=== PATIENT | female | born 1975 | race African-American/Black ===

== ENCOUNTER 2019-10-01 09:06 | Emergency (ER) | payer MEDICAID ==
[~2019-10-01] VITALS: Ht 160 cm; Wt 79.4 kg
[~2019-10-01 09:06] MED LIST: ABILIFY10 MG ORAL; ADVAIR 250-501 EACH INH; ALBUTEROL SULF8.5 GM INH; ALBUTEROL2.5 MG/3 M HHN; CIPRO500 MG PO; COMBIVENT2 PUFFS INH; DILANTIN100 MG ORAL; IBUPROFEN600 MG ORAL; MACROBID100 MG ORAL; NAPROXEN500 M1 ORAL; PREDNISONE20 MG ORAL; ZOFRAN ODT4 MG ORAL; ZOLOFT100 MG ORAL
--- NOTE | 2019-10-01 09:20 | NUR ---
ED Nurse Note: Patient presented to ED via ambulance. Patient is homeless. Patient c/o flu-like symptoms such as dry throat, overall fatigue, feeling feverish. Patient is aao x 4. Patient ambulatory. No acute distress noted.
--- NOTE | 2019-10-01 09:22 | NUR ---
ED Nurse Note: Per Dr. Basurto, patient is okay to stay in fast track without hall monitor.
[2019-10-01 09:25] VITALS: BP 149/98
--- NOTE | 2019-10-01 09:45 | NUR ---
ED Nurse Note: Patient stated she was just at [facility] for the same symptoms yesterday.
--- NOTE | 2019-10-01 09:45 | NUR ---
ED Nurse Note: 2 RNs attempted to get IV line inserted with no success. Lab contacted to draw bloodwork. notified.
[2019-10-01 09:59] LABS: APPEARANCE,URINE CLOUDY; BILIRUBIN, URINE NEGATIVE (NEGATIVE); COLOR,URINE BROWN; GLUCOSE, URINE (UA) NEGATIVE (NEGATIVE); KETONES,URINE NEGATIVE (NEGATIVE); LEUKOCYTE ESTERASE ,URINE NEGATIVE (NEGATIVE); NITRITE,URINE NEGATIVE (NEGATIVE); PH,URINE 6 (4.5-8.0); PROTEIN,URINE 2+ (NEGATIVE); UROBILINOGEN,URINE 1 MG/DL (0.0-1.0)
--- NOTE | 2019-10-01 10:19 | NUR ---
ED Nurse Note: Patient requested for cold pack for toothache. Cold pack provided and patient instructed not to put cold pack directly on bare skin, verbalized understanding.
--- NOTE | 2019-10-01 10:31 | NUR ---
ED Nurse Note: Patient refused any IV attempt on arms, per patient only neck. Dr. Basurto notified.
[2019-10-01 10:34] LABS: BASOPHILS % (AUTO) 1.5 % (0.0-2.0); EOSINOPHILS % (AUTO) 0.5 % (0.0-3.0); HEMATOCRIT 37.3 % (37.0-47.0); HEMOGLOBIN 12.1 G/DL (12.0-16.0); LYMPHOCYTES % (AUTO) 28.8 % (20.0-45.0); MEAN CORPUSCULAR VOLUME 83 FL (80-99); MONOCYTES % (AUTO) 11.5 % (1.0-10.0); NEUTROPHILS % (AUTO) 57.7 % (45.0-75.0); PLATELET COUNT 178 K/UL (150-450); RED CELL DISTRIBUTION WIDTH 16.3 % (11.6-14.8)
[2019-10-01 10:43] LABS: ANION GAP 8 mmol/L (5-15); BLOOD UREA NITROGEN 15 mg/dL (7-18); CALCIUM 8.2 MG/DL (8.5-10.1); CARBON DIOXIDE 28 MMOL/L (21-32); CHLORIDE 104 MMOL/L (98-107); CREATININE 0.6 MG/DL (0.55-1.30); POTASSIUM 3.8 MMOL/L (3.5-5.1); SODIUM 140 MMOL/L (136-145)
[2019-10-01 11:18] LABS: ALANINE AMINOTRANSFERASE 62 U/L (12-78); ALBUMIN 3.5 G/DL (3.4-5.0); ALBUMIN/GLOBULIN RATIO 0.8 (1.0-2.7); ALKALINE PHOSPHATASE 60 U/L (46-116); ASPARTATE AMINO TRANSFERASE 43 U/L (15-37); BILIRUBIN,TOTAL 0.5 MG/DL (0.2-1.0); CKMB 3.4 NG/ML (0.0-3.6); CREATINE KINASE 305 U/L (26-308)
--- NOTE | 2019-10-01 11:55 | NUR ---
ED Nurse Note: lunch tray provide.
--- NOTE | 2019-10-01 12:08 | NUR ---
ED Nurse Note: pt finished 100% of lunch tray.
--- NOTE | 2019-10-01 12:15 | Diagnostic Imaging Report ---
Indication: Dyspnea Comparison: 12/20/2013 A single view chest radiograph was obtained. Findings: Cardiomediastinal appearance is within normal limits for age. The lungs are clear. Pulmonary vascularity is appropriate. The diaphragmatic contour is smooth and costophrenic angles are sharp. No pleural effusions are identified. The bones are unremarkable. Impression: No acute findings
--- NOTE | 2019-10-01 13:04 | Emergency Room Report ---
History of Present Illness General Chief Complaint: Flu Like Symptoms Source: Patient Present Illness HPI This patient is brought in by EMS from the streets. She is homeless. She states she has had ongoing social stressors in life stressors that has caused her to be suicidal. She states she has been going from hospital to hospital because she feels "terrible." She does not feel safe and is requesting evaluation and placement in a psychiatric facility. She also states she has all over body aches and overall just feels terrible. She denies any specific symptoms. She denies fever or chills. She denies nausea or vomiting. She denies chest pain or shortness of breath. Allergies: Coded Allergies: ACETAMINOPHEN (Verified Allergy, Unknown, 09/10/14) HYDROCODONE (Unverified Allergy, Unknown, 01/02/15) HYDROCODONE BIT (Verified Allergy, Unknown, 09/10/14) IBUPROFEN (Unverified Allergy, Unknown, 10/01/19) Patient History Past Medical History: see triage record, asthma, seizures Social History: Reports: smoking, alcohol use, drug use Reviewed Nursing Documentation: PMH: Agreed; PSxH: Agreed Nursing Documentation-PMH Past Medical History: No History, Except For Hx Asthma: Yes Hx Seizures: Yes Review of Systems All Other Systems: negative except mentioned in HPI Physical Exam Vital Signs Date Time Temp Pulse Resp B/P (MAP) Pulse Ox O2 Delivery O2 Flow Rate FiO2 10/01/19 09:06 98.2 100 18 151/96 (114) 99 Room Air Sp02 EP Interpretation: reviewed, normal General Appearance: no apparent distress, alert, GCS 15, non-toxic Head: normocephalic, atraumatic Eyes: bilateral eye normal inspection, bilateral eye PERRL ENT: hearing grossly normal, normal pharynx, no angioedema, normal voice Neck: full range of motion, supple/symm/no masses Respiratory: chest non-tender, lungs clear, normal breath sounds, no respiratory distress, no retraction, no accessory muscle use, speaking full sentences Cardiovascular #1: regular rate, rhythm, no edema Gastrointestinal: normal bowel sounds, non tender, soft, non-distended, no guarding, no rebound Rectal: deferred Musculoskeletal: back normal, gait/station normal, normal range of motion, non- tender Neurologic: alert, oriented x3, responsive, motor strength/tone normal, sensory intact, speech normal Psychiatric: judgement/insight normal, memory normal, depressed affect Skin: no rash, rash Medical Decision Making Diagnostic Impression: Primary Impression: Suicidal ideation Additional Impression: Drug abuse ER Course This patient presents with suicidal ideation. She is also homeless and has polysubstance drug abuse. She is awaiting transfer as a voluntary admit to a psychiatric facility. She is medically cleared for treatment in a psychiatric facility. Laboratory Tests Test 10/01/19 09:18 10/01/19 10:20 Urine Color Brown Urine Appearance Cloudy Urine pH 6 (4.5-8.0) Urine Specific [place] 1.020 (1.005-1.035) Urine Protein 2+ (NEGATIVE) H Urine Glucose (UA) Negative (NEGATIVE) Urine Ketones Negative (NEGATIVE) Urine Blood Negative (NEGATIVE) Urine Nitrite Negative (NEGATIVE) Urine Bilirubin Negative (NEGATIVE) Urine Urobilinogen 1 MG/DL (0.0-1.0) H Urine Leukocyte Esterase Negative (NEGATIVE) Urine RBC 0 /HPF (0 - 2) Urine WBC 0 /HPF (0 - 2) Urine Squamous Epithelial Cells Moderate /LPF (NONE/OCC) H Urine Bacteria Few /HPF (NONE) Urine Mucus Few /LPF (NONE/OCC) H Urine Opiates Screen Negative (NEGATIVE) Urine Barbiturates Screen Negative (NEGATIVE) Phencyclidine (PCP) Screen Negative (NEGATIVE) Urine Amphetamines Screen Positive (NEGATIVE) H Urine Benzodiazepines Screen Negative (NEGATIVE) Urine Cocaine Screen Positive (NEGATIVE) H Urine Marijuana (THC) Screen Negative (NEGATIVE) White Blood Count 7.0 K/UL (4.8-10.8) Red Blood Count 4.50 M/UL (4.20-5.40) Hemoglobin 12.1 G/DL (12.0-16.0) Hematocrit 37.3 % (37.0-47.0) Mean Corpuscular Volume 83 FL (80-99) Mean Corpuscular Hemoglobin 26.9 PG (27.0-31.0) L Mean Corpuscular Hemoglobin Concent 32.5 G/DL (32.0-36.0) Red Cell Distribution Width 16.3 % (11.6-14.8) H Platelet Count 178 K/UL (150-450) Mean Platelet Volume 7.1 FL (6.5-10.1) Neutrophils (%) (Auto) 57.7 % (45.0-75.0) Lymphocytes (%) (Auto) 28.8 % (20.0-45.0) Monocytes (%) (Auto) 11.5 % (1.0-10.0) H Eosinophils (%) (Auto) 0.5 % (0.0-3.0) Basophils (%) (Auto) 1.5 % (0.0-2.0) Sodium Level 140 MMOL/L (136-145) Potassium Level 3.8 MMOL/L (3.5-5.1) Chloride Level 104 MMOL/L (98-107) Carbon Dioxide Level 28 MMOL/L (21-32) Anion Gap 8 mmol/L (5-15) Blood Urea Nitrogen 15 mg/dL (7-18) Creatinine 0.6 MG/DL (0.55-1.30) Estimate Glomerular Filtration Rate > 60 mL/min (>60) Glucose Level 86 MG/DL (74-106) Lactic Acid Level 0.80 mmol/L (0.4-2.0) Calcium Level 8.2 MG/DL (8.5-10.1) L Total Bilirubin 0.5 MG/DL (0.2-1.0) Aspartate Amino Transferase (AST) 43 U/L (15-37) H Alanine Aminotransferase (ALT) 62 U/L (12-78) Alkaline Phosphatase 60 U/L (46-116) Total Creatine Kinase 305 U/L (26-308) Creatine Kinase MB 3.4 NG/ML (0.0-3.6) Creatine Kinase MB Relative Index 1.1 Troponin I 0.002 ng/mL (0.000-0.056) Total Protein 7.9 G/DL (6.4-8.2) Albumin 3.5 G/DL (3.4-5.0) Globulin 4.4 g/dL Albumin/Globulin Ratio 0.8 (1.0-2.7) L EKG Diagnostic Results Rate: normal Rhythm: NSR ST Segments: no acute changes Rhythm Strip Diag. Results EP Interpretation: yes Rate: 70's Rhythm: NSR, no PVC's, no ectopy Chest X-Ray Diagnostic Results Chest X-Ray Diagnostic Results : Chest X-Ray Ordered: Yes # of Views/Limited/Complete: 1 View Indication: Other EP Interpretation: Yes Interpretation: no consolidation, no effusion, no pneumothorax, no acute cardiopulmonary disease Impression: No acute disease Electronically Signed by: Misty Basurto DO Last Vital Signs Date Time Temp Pulse Resp B/P (MAP) Pulse Ox O2 Delivery O2 Flow Rate FiO2 10/01/19 09:25 98.0 78 17 149/98 99 Room Air Status: improved Disposition: XFER TO PSYCH HOSP/UNIT Condition: Stable Referrals: [facility]ERR[facility] (PCP) Misty Basurto DO Oct 01, 2019 13:04
[2019-10-01 15:41] VITALS: BP 144/86
--- NOTE | 2019-10-01 15:42 | NUR ---
ED Nurse Note: Patient belonging list completed and patient belongings placed in locker for safe keeping. Patient kept panties and pants due to having menstrual period/spotting.
--- NOTE | 2019-10-01 18:19 | NUR ---
ED Nurse Note: SAMANTHA Mackey confirmed with lab person that they can run test for dilantin level with previous specimen.
[2019-10-01] MEDS ORDERED: Phenytoin 1,000 MG in NS 275 ML IV ONE (18:45)
--- NOTE | 2019-10-01 18:56 | NUR ---
HAND-OFF: Report given to rebecca Sarah.
[2019-10-01 19:00] VITALS: BP 152/88
--- NOTE | 2019-10-01 19:00 | NUR ---
ED Nurse Note: Received report from Dana SINGH. Pt transferred from Ortho to Bed 4. Pt alert and oriented, verbally responsive. No SOB. Able to walk with steady gait. VSS.
--- NOTE | 2019-10-01 19:24 | NUR ---
HAND-OFF: Report given to Lillie SINGH. Endorsed plan of care. No new further order at this time.
[2019-10-01 20:33] VITALS: BP 115/99
--- NOTE | 2019-10-01 21:05 | NUR ---
ED Nurse Note: pt finished 1/2 of a sandwhich and orange juice. voiding into bedpan. vitals are: HR: 110 RR: 17 SpO2: 98% on room air BP: 155/93
--- NOTE | 2019-10-01 23:05 | NUR ---
ED Nurse Note: pt is lying in bed with eyes closed, using bedside commode. vital signs are: Hr: 102 RR: 20 SpO2: 97% on room air BP: 155/95
[2019-10-01 23:06] VITALS: BP 155/95
--- NOTE | 2019-10-02 02:41 | NUR ---
ED Nurse Note: pt able to ambulate to restroom with steady gait. does not appear to be in any distress at this time
[2019-10-02 05:00] VITALS: BP 157/95
--- NOTE | 2019-10-02 07:20 | NUR ---
HAND-OFF: Report given to SAMANTHA Ureña.
--- NOTE | 2019-10-02 07:32 | NUR ---
ED Nurse Note: Patient recieved from SAMANTHA Moreira. Patient is talkative and responds to questions accurately, she stats "she is more depressed and wants to hurt self, ill walk on to traffic" she looks anxious with hair unkempt. waiting for trasfer to psychiatric facility
[2019-10-02 08:23] VITALS: BP 121/90
--- NOTE | 2019-10-02 08:39 | Emergency Room Report ---
Physical Exam Please see initial note by Dr. Corral. Last 24 Hour Vital Signs Date Time Temp Pulse Resp B/P (MAP) Pulse Ox O2 Delivery O2 Flow Rate FiO2 10/02/19 08:23 100.2 100 20 121/90 98 Room Air 10/02/19 05:00 98.9 104 22 157/95 98 Room Air 10/01/19 23:06 102 20 155/95 97 Room Air 10/01/19 20:33 102 18 115/99 96 Room Air 10/01/19 19:00 98.9 89 19 152/88 100 Room Air 10/01/19 15:41 99.5 96 18 144/86 100 Room Air 10/01/19 09:25 98.0 78 17 149/98 99 Room Air 10/01/19 09:25 100 18 Room Air 10/01/19 09:06 98.2 100 18 151/96 (114) 99 Room Air Sp02 EP Interpretation: reviewed, normal General Appearance: well appearing, no apparent distress, GCS 15 Eyes: bilateral eye normal inspection, bilateral eye PERRL, bilateral eye EOMI ENT: moist mucus membranes, other - capped tooth L upper molar with swelling Neck: full range of motion, supple Respiratory: chest non-tender Cardiovascular #1: regular rate, rhythm Cardiovascular #2: 2+ radial (R) Musculoskeletal: back normal, digits/nails normal, gait/station normal Neurologic: alert, oriented x3, grossly normal Psychiatric: no suicidal/homicidal ideation, depressed affect Skin: no rash Medical Decision Making Diagnostic Impression: Primary Impression: Suicidal ideation Additional Impressions: Drug abuse Dental abscess History of seizures ER Course Please see the note from Dr. Corral. Patient is been accepted for voluntary psychiatric admission. This morning she is complaining about headache and a fever and dental pain on the left-hand side. Evaluated by me. Antibiotics begun and treated for pain. Also the patient received a dose of Zoloft. Laboratory Tests Test 10/01/19 09:18 10/01/19 10:20 Urine Color Brown Urine Appearance Cloudy Urine pH 6 (4.5-8.0) Urine Specific [place] 1.020 (1.005-1.035) Urine Protein 2+ (NEGATIVE) H Urine Glucose (UA) Negative (NEGATIVE) Urine Ketones Negative (NEGATIVE) Urine Blood Negative (NEGATIVE) Urine Nitrite Negative (NEGATIVE) Urine Bilirubin Negative (NEGATIVE) Urine Urobilinogen 1 MG/DL (0.0-1.0) H Urine Leukocyte Esterase Negative (NEGATIVE) Urine RBC 0 /HPF (0 - 2) Urine WBC 0 /HPF (0 - 2) Urine Squamous Epithelial Cells Moderate /LPF (NONE/OCC) H Urine Bacteria Few /HPF (NONE) Urine Mucus Few /LPF (NONE/OCC) H Urine Opiates Screen Negative (NEGATIVE) Urine Barbiturates Screen Negative (NEGATIVE) Phencyclidine (PCP) Screen Negative (NEGATIVE) Urine Amphetamines Screen Positive (NEGATIVE) H Urine Benzodiazepines Screen Negative (NEGATIVE) Urine Cocaine Screen Positive (NEGATIVE) H Urine Marijuana (THC) Screen Negative (NEGATIVE) White Blood Count 7.0 K/UL (4.8-10.8) Red Blood Count 4.50 M/UL (4.20-5.40) Hemoglobin 12.1 G/DL (12.0-16.0) Hematocrit 37.3 % (37.0-47.0) Mean Corpuscular Volume 83 FL (80-99) Mean Corpuscular Hemoglobin 26.9 PG (27.0-31.0) L Mean Corpuscular Hemoglobin Concent 32.5 G/DL (32.0-36.0) Red Cell Distribution Width 16.3 % (11.6-14.8) H Platelet Count 178 K/UL (150-450) Mean Platelet Volume 7.1 FL (6.5-10.1) Neutrophils (%) (Auto) 57.7 % (45.0-75.0) Lymphocytes (%) (Auto) 28.8 % (20.0-45.0) Monocytes (%) (Auto) 11.5 % (1.0-10.0) H Eosinophils (%) (Auto) 0.5 % (0.0-3.0) Basophils (%) (Auto) 1.5 % (0.0-2.0) Sodium Level 140 MMOL/L (136-145) Potassium Level 3.8 MMOL/L (3.5-5.1) Chloride Level 104 MMOL/L (98-107) Carbon Dioxide Level 28 MMOL/L (21-32) Anion Gap 8 mmol/L (5-15) Blood Urea Nitrogen 15 mg/dL (7-18) Creatinine 0.6 MG/DL (0.55-1.30) Estimate Glomerular Filtration Rate > 60 mL/min (>60) Glucose Level 86 MG/DL (74-106) Lactic Acid Level 0.80 mmol/L (0.4-2.0) Calcium Level 8.2 MG/DL (8.5-10.1) L Total Bilirubin 0.5 MG/DL (0.2-1.0) Aspartate Amino Transferase (AST) 43 U/L (15-37) H Alanine Aminotransferase (ALT) 62 U/L (12-78) Alkaline Phosphatase 60 U/L (46-116) Total Creatine Kinase 305 U/L (26-308) Creatine Kinase MB 3.4 NG/ML (0.0-3.6) Creatine Kinase MB Relative Index 1.1 Troponin I 0.002 ng/mL (0.000-0.056) Total Protein 7.9 G/DL (6.4-8.2) Albumin 3.5 G/DL (3.4-5.0) Globulin 4.4 g/dL Albumin/Globulin Ratio 0.8 (1.0-2.7) L Phenytoin (Dilantin) Level 1.1 ug/mL (10-20) L Microbiology Date/Time Source Procedure Growth Status 10/01/19 09:47 Nasal Nares - Final Complete 10/01/19 09:47 Nasal Nares - Final Complete Last Vital Signs Date Time Temp Pulse Resp B/P (MAP) Pulse Ox O2 Delivery O2 Flow Rate FiO2 10/02/19 10:25 98.3 91 15 137/94 97 Room Air Status: improved Disposition: XFER TO PSYCH HOSP/UNIT Condition: Stable Referrals: [facility]ERR[facility] (PCP) Niranjan Ji MD Oct 02, 2019 08:39
[2019-10-02] MEDS ORDERED: Sertraline 50mg tab ORAL ONE (08:45)
[2019-10-02] MEDS ORDERED: oxyCODONE HCL/Acetaminophen 5/325mg ORAL ONE (08:45)
[2019-10-02] MEDS ORDERED: Acetaminophen 500mg (ES) tab ORAL ONE (08:45)
--- NOTE | 2019-10-02 08:56 | NUR ---
ED Nurse Note: Patient medication administered for pain, fever, antibiotic and depression. patient states she has a 10/10 pain on the 21st and 22nd tooth at the bottom jaw, has become slightly fever.
--- NOTE | 2019-10-02 10:18 | NUR ---
ED Nurse Note: Patient transffered to [facility] with EMT, ED transfer for completed. report given to Isael stearns at [facility]. she remains talkative and coherent, she has a steady gait and able to ambulate, she remains depresses and has toughts of suicidal ideation with plan to talk onto traffic. she remained in bed while in the hospital Left EJ IV taken out upon transfer, all belongings given to the patient and signed patient belongings inventopry form. ETA to [facility] is approximately 25min.
[2019-10-02 10:25] VITALS: BP 137/94
--- NOTE | 2019-10-02 15:22 | Cardiology Report ---
APPROVED REPORT EKG Measurement Heart [id number] Normal sinus rhythm Normal ECG
== END 2019-10-02 10:25 ==
LOC: EDBD 09:06 → EMR 09:22
DX: R45.851 Suicidal ideations (principal); F19.10 Other psychoactive substance abuse, uncomplicated; Z59.0 Homelessness; Z88.6 Allergy status to analgesic agent; G40.909 Epilepsy, unspecified, not intractable, without status epilepticus; F17.200 Nicotine dependence, unspecified, uncomplicated
CPT/HCPCS: 36415; 71045; 80053; 80185; 80307; 81003; 82550; 82553; 83605; 84484; 85025; 86710; 87040; 93005; 96361; 96365; J1165; J7050; Z7502; 99284